=== PATIENT | male | born 1935 | race Caucasian/White ===

== ENCOUNTER 2018-09-30 07:17 | Day surgery (SDC) | payer OTHER ==
[~2018-09-30 07:17] MED LIST: ALTACE10 MG PO; ASA81 MG PO; ZOCOR20 MG PO
== END 2018-09-30 14:30 | disposition home or self-care (01) ==
LOC: CIR.AMB 07:17
DX: M48.061 Spinal stenosis, lumbar region without neurogenic claudication (principal)